=== PATIENT | female | born 1940 | race Caucasian/White ===

== ENCOUNTER 2017-09-25 19:52 | Emergency (ER) | payer OTHER ==
[2017-09-26] MEDS: morphine 4 MG/ML VIAL IV (08:46)
[2017-09-26] MEDS: PANTOPRAZOLE 40 MG INJ IV (08:46)
[2017-09-26] MEDS: ONDANSETRON 4 MG INJ IV (08:46)
[2017-09-26 08:57] LABS: ADD MAN DIFF? NO
[2017-09-26 09:11] LABS: WHITE BLOOD COUNT 7.9 10^3/ul (4.8-10.8)
[2017-09-26 09:11] LABS: BASOPHIL # 0.1 10^3/ul (0.0-0.1); BASOPHILS % 0.9 % (0.0-2.0); EOSINOPHILS # 0.1 10^3/ul (0.0-0.5); EOSINOPHILS % 0.6 % (0.0-7.0); HEMATOCRIT 35.9 % (37.0-47.0); HEMOGLOBIN 12.5 g/dl (12.0-16.0); LYMPHOCYTES # 2.3 10^3/ul (0.8-2.9); LYMPHOCYTES % 29.5 % (15.0-51.0); MEAN CORPUSCULAR HEMOGLOBIN 30.3 pg (29.0-33.0); MEAN CORPUSCULAR HGB CONC 34.8 g/dl (32.0-37.0); MEAN CORPUSCULAR VOLUME 86.9 fl (82.0-101.0); MEAN PLATELET VOLUME 9.7 fl (7.4-10.4); MONOCYTE # 0.5 10^3/ul (0.3-0.9); MONOCYTES % 6.7 % (0.0-11.0); NEUTROPHIL # 4.9 10^3/ul (1.6-7.5); NEUTROPHILS % 61.8 % (39.0-77.0); PLATELET COUNT 286 10^3/UL (140-415); RED BLOOD COUNT 4.13 10^6/ul (4.20-5.40); RED CELL DISTRIBUTION WIDTH 14.3 % (11.5-14.5)
[2017-09-26 09:26] LABS: ALANINE AMINOTRANSFERASE 39 IU/L (13-69); ALBUMIN 4.5 g/dl (3.3-4.9); ALBUMIN/GLOBULIN RATIO 1.09; ALKALINE PHOSPHATASE 88 IU/L (42-121); ANION GAP 16 (8-16); ASPARTATE AMINO TRANSFERASE 39 IU/L (15-46); BILIRUBIN,INDIRECT 0.4 mg/dl (0-1.1); BILIRUBIN,TOTAL 0.4 mg/dl (0.2-1.3); BLOOD UREA NITROGEN 12 mg/dl (7-20); CALCIUM 9.7 mg/dl (8.4-10.2); CARBON DIOXIDE 22 mmol/L (21-31); CHLORIDE 96 mmol/L (97-110); CREATININE 0.79 mg/dl (0.44-1.00); GLUCOSE 98 mg/dl (70-220); POTASSIUM 3.9 mmol/L (3.5-5.1); SODIUM 130 mmol/L (135-144); TOTAL PROTEIN 8.6 g/dl (6.1-8.1)
[2017-09-26 09:38] LABS: TROPONIN-I < 0.012 ng/ml (0.00-0.12)
[2017-09-26 09:40] LABS: INR 0.98; PROTIME 13.1 Sec (11.9-14.9)
[2017-09-26 09:41] LABS: PARTIAL THROMBOPLASTIN TIME 28.7 Sec (25.0-35.0)
[2017-09-26] MEDS ORDERED: HYDROmorphONE 1 MG/ML SYG (09:48)
[2017-09-26] MEDS: HYDROmorphONE 1 MG/ML SYG IV (09:50)
== END 2017-09-26 10:43 | disposition home or self-care (01) ==
LOC: E/R 19:52
DX: K62.5 Hemorrhage of anus and rectum (principal); I10 Essential (primary) hypertension
CPT/HCPCS: 36415; 74176; 80053; 84484; 85025; 85610; 85730; 86850; 86900; 86901; 93005; 96374; 96375; 99285-25

== ENCOUNTER 2018-01-06 17:48 | Inpatient (IN) | payer OTHER ==
[2018-01-06 18:45] LABS: ADD MAN DIFF? NO
[2018-01-06 18:47] LABS: BASOPHIL # 0.1 10^3/ul (0.0-0.1); BASOPHILS % 0.6 % (0.0-2.0); EOSINOPHILS # 0.1 10^3/ul (0.0-0.5); EOSINOPHILS % 1.7 % (0.0-7.0); HEMATOCRIT 34.1 % (37.0-47.0); HEMOGLOBIN 11.6 g/dl (12.0-16.0); LYMPHOCYTES # 3.1 10^3/ul (0.8-2.9); LYMPHOCYTES % 39.1 % (15.0-51.0); MEAN CORPUSCULAR HEMOGLOBIN 30.9 pg (29.0-33.0); MEAN CORPUSCULAR VOLUME 90.9 fl (82.0-101.0); MEAN PLATELET VOLUME 9.2 fl (7.4-10.4); MONOCYTE # 0.6 10^3/ul (0.3-0.9); MONOCYTES % 7.6 % (0.0-11.0); NEUTROPHILS % 50.7 % (39.0-77.0); PLATELET COUNT 224 10^3/UL (140-415); RED BLOOD COUNT 3.75 10^6/ul (4.20-5.40); RED CELL DISTRIBUTION WIDTH 13.8 % (11.5-14.5)
[2018-01-06 18:47] LABS: WHITE BLOOD COUNT 7.9 10^3/ul (4.8-10.8)
[2018-01-06] MEDS: ASPIRIN 81 MG TAB PO (18:50)
[2018-01-06] MEDS: LIDOCAINE/MYLANTA 40 ML BTL PO ×2 (18:50→23:59)
[2018-01-06 19:14] LABS: ANION GAP 13 (8-16); BLOOD UREA NITROGEN 14 mg/dl (7-20); CALCIUM 8.8 mg/dl (8.4-10.2); CARBON DIOXIDE 26 mmol/L (21-31); CHLORIDE 97 mmol/L (97-110); CREATININE 0.86 mg/dl (0.44-1.00); GLUCOSE 96 mg/dl (70-220); POTASSIUM 3.5 mmol/L (3.5-5.1); SODIUM 132 mmol/L (135-144)
[2018-01-06 19:26] LABS: TROPONIN-I < 0.012 ng/ml (0.00-0.12)
[2018-01-06] MEDS ORDERED: ACETAMINOPHEN 325 MG TAB PO (20:00)
[2018-01-06] MEDS ORDERED: ONDANSETRON 4 MG INJ IV (20:00)
[2018-01-06] MEDS: NITROGLYCERIN (SL) 0.4 MG TAB SL (22:58)
[2018-01-06] MEDS ORDERED: LIDOCAINE/MYLANTA 40 ML BTL PO (23:00)
[2018-01-07] MEDS ORDERED: ACETAMINOPHEN 325 MG TAB PO
[2018-01-07] MEDS ORDERED: NITROGLYCERIN (SL) 0.4 MG TAB SL
[2018-01-07] MEDS ORDERED: NACL 0.9% 3 ML SYG IV
[2018-01-07 00:14] LABS: TROPONIN-I 0.021 ng/ml (0.00-0.12)
[2018-01-07 00:37] LABS: CREATINE KINASE 56 IU/L (23-200)
[2018-01-07 00:50] LABS: CK INDEX 1.9; CK-MB 1.07 ng/ml (0.0-2.4); TROPONIN-I 0.019 ng/ml (0.00-0.12)
[2018-01-07] MEDS: SUCRALFATE 1 GM TAB PO ×4 (00:53→17:29)
[2018-01-07] MEDS: SOD CHLORIDE 0.9% 1,000 ML IV (00:54)
[2018-01-07] MEDS: PANTOPRAZOLE 40 MG INJ IV ×2 (00:54→06:18)
[2018-01-07] MEDS ORDERED: ZOLPIDEM 5 MG TAB PO (04:30)
[2018-01-07] MEDS ORDERED: LIDOCAINE/MYLANTA 40 ML BTL PO (04:30)
[2018-01-07] MEDS: LIDOCAINE/MYLANTA 40 ML BTL PO (06:18)
[2018-01-07 06:24] LABS: ADD MAN DIFF? NO
[2018-01-07 06:27] LABS: BASOPHIL # 0.1 10^3/ul (0.0-0.1); BASOPHILS % 0.8 % (0.0-2.0); EOSINOPHILS # 0.1 10^3/ul (0.0-0.5); EOSINOPHILS % 2.3 % (0.0-7.0); HEMATOCRIT 33.1 % (37.0-47.0); HEMOGLOBIN 11.4 g/dl (12.0-16.0); LYMPHOCYTES # 2.6 10^3/ul (0.8-2.9); MEAN CORPUSCULAR HEMOGLOBIN 31.3 pg (29.0-33.0); MEAN CORPUSCULAR HGB CONC 34.4 g/dl (32.0-37.0); MEAN CORPUSCULAR VOLUME 90.9 fl (82.0-101.0); MEAN PLATELET VOLUME 9.8 fl (7.4-10.4); MONOCYTE # 0.5 10^3/ul (0.3-0.9); MONOCYTES % 7.7 % (0.0-11.0); NEUTROPHIL # 2.9 10^3/ul (1.6-7.5); PLATELET COUNT 222 10^3/UL (140-415); RED BLOOD COUNT 3.64 10^6/ul (4.20-5.40); RED CELL DISTRIBUTION WIDTH 13.5 % (11.5-14.5)
[2018-01-07 06:27] LABS: WHITE BLOOD COUNT 6.2 10^3/ul (4.8-10.8)
[2018-01-07 06:50] LABS: ALANINE AMINOTRANSFERASE 37 IU/L (13-69); ALBUMIN 3.3 g/dl (3.3-4.9); ALKALINE PHOSPHATASE 58 IU/L (42-121); ANION GAP 16 (8-16); ASPARTATE AMINO TRANSFERASE 38 IU/L (15-46); BILIRUBIN,INDIRECT 0.5 mg/dl (0-1.1); BILIRUBIN,TOTAL 0.5 mg/dl (0.2-1.3); BLOOD UREA NITROGEN 11 mg/dl (7-20); CALCIUM 8.8 mg/dl (8.4-10.2); CARBON DIOXIDE 27 mmol/L (21-31); CHLORIDE 101 mmol/L (97-110); CHOL/HDL RATIO 4.1 RATIO; CHOLESTEROL 193 mg/dl (100-200); CREATININE 0.85 mg/dl (0.44-1.00); GLUCOSE 91 mg/dl (70-220); HDL CHOLESTEROL 47 mg/dl (33-92); LDL CHOLESTEROL,CALCULATED 123 mg/dl; MAGNESIUM 1.9 mg/dl (1.7-2.5); POTASSIUM 4.3 mmol/L (3.5-5.1); SODIUM 140 mmol/L (135-144); TOTAL PROTEIN 6.3 g/dl (6.1-8.1); TRIGLYCERIDES 116 mg/dl (0-149)
[2018-01-07 06:57] LABS: CREATINE KINASE 50 IU/L (23-200)
[2018-01-07 07:03] LABS: CK INDEX 1.6; CK-MB 0.81 ng/ml (0.0-2.4); TROPONIN-I 0.019 ng/ml (0.00-0.12)
[2018-01-07 07:06] LABS: HEMOGLOBIN A1C 5.7 % (0-5.9)
[2018-01-07] MEDS ORDERED: AL HYDROX/MG HYDROX/SIMETH 30 ML CUP PO (08:00)
[2018-01-07] MEDS: METOPROLOL 50 MG TAB PO ×2 (08:27→21:00)
[2018-01-07 10:42] LABS: T4 (THYROXINE) 9.9 ug/dl (5.5-11.0)
[2018-01-07 10:44] LABS: FREE T4 (FREE THYROXINE) 1.62 ng/dl (0.78-2.44)
[2018-01-07] MEDS: morphine 2 MG INJ IV ×3 (11:30→23:58)
[2018-01-07] MEDS: DOCUSATE SODIUM 100 MG CAP PO ×2 (12:43→21:51)
[2018-01-07] MEDS: BENAZEPRIL 40 MG TAB PO (12:43)
[2018-01-07 12:44] LABS: ADD MAN DIFF? NO
[2018-01-07 12:47] LABS: BASOPHILS % 0.6 % (0.0-2.0); EOSINOPHILS # 0.1 10^3/ul (0.0-0.5); EOSINOPHILS % 1.7 % (0.0-7.0); HEMATOCRIT 32.3 % (37.0-47.0); HEMOGLOBIN 11.1 g/dl (12.0-16.0); LYMPHOCYTES # 1.6 10^3/ul (0.8-2.9); LYMPHOCYTES % 29.5 % (15.0-51.0); MEAN CORPUSCULAR HEMOGLOBIN 31.2 pg (29.0-33.0); MEAN CORPUSCULAR HGB CONC 34.4 g/dl (32.0-37.0); MEAN CORPUSCULAR VOLUME 90.7 fl (82.0-101.0); MEAN PLATELET VOLUME 9.8 fl (7.4-10.4); MONOCYTE # 0.5 10^3/ul (0.3-0.9); MONOCYTES % 8.8 % (0.0-11.0); NEUTROPHIL # 3.2 10^3/ul (1.6-7.5); PLATELET COUNT 214 10^3/UL (140-415); RED BLOOD COUNT 3.56 10^6/ul (4.20-5.40); RED CELL DISTRIBUTION WIDTH 13.7 % (11.5-14.5)
[2018-01-07 12:47] LABS: WHITE BLOOD COUNT 5.4 10^3/ul (4.8-10.8)
[2018-01-07 13:02] LABS: RETICULOCYTE RBC 3.55
[2018-01-07 13:02] LABS: RETICULOCYTE COUNT # 0.052 X10^6 (0.020-0.110); RETICULOCYTE COUNT % 1.5 % (0.5-1.5)
[2018-01-07 13:07] LABS: IRON 76 ug/dl (35-150)
[2018-01-07 13:08] LABS: LACTATE DEHYDROGENASE 560 IU/L (313-618)
[2018-01-07 13:18] LABS: % IRON SATURATION 25 % SAT (22-52); TOTAL IRON BINDING CAPACITY 299 ug/dl (241-421)
[2018-01-07] MEDS: ONDANSETRON 4 MG INJ IV ×2 (17:29→21:55)
[2018-01-07] MEDS: PANTOPRAZOLE (EC) 40 MG TAB PO (17:29)
[2018-01-07 18:49] LABS: ADD MAN DIFF? NO
[2018-01-07 18:50] LABS: WHITE BLOOD COUNT 4.8 10^3/ul (4.8-10.8)
[2018-01-07 18:50] LABS: BASOPHILS % 0.4 % (0.0-2.0); EOSINOPHILS # 0.1 10^3/ul (0.0-0.5); EOSINOPHILS % 1.7 % (0.0-7.0); HEMATOCRIT 34.2 % (37.0-47.0); HEMOGLOBIN 11.4 g/dl (12.0-16.0); LYMPHOCYTES # 1.6 10^3/ul (0.8-2.9); LYMPHOCYTES % 33.1 % (15.0-51.0); MEAN CORPUSCULAR HEMOGLOBIN 30.5 pg (29.0-33.0); MEAN CORPUSCULAR HGB CONC 33.3 g/dl (32.0-37.0); MEAN CORPUSCULAR VOLUME 91.4 fl (82.0-101.0); MEAN PLATELET VOLUME 9.8 fl (7.4-10.4); MONOCYTE # 0.4 10^3/ul (0.3-0.9); MONOCYTES % 8.8 % (0.0-11.0); NEUTROPHIL # 2.7 10^3/ul (1.6-7.5); NEUTROPHILS % 55.6 % (39.0-77.0); PLATELET COUNT 220 10^3/UL (140-415); RED BLOOD COUNT 3.74 10^6/ul (4.20-5.40); RED CELL DISTRIBUTION WIDTH 13.6 % (11.5-14.5)
[2018-01-07] MEDS: ZOLPIDEM 5 MG TAB PO (21:50)
[2018-01-07] MEDS: ATORVASTATIN 40 MG TAB PO (21:51)
[2018-01-07 22:20] LABS: ADD UMIC NO; UR ASCORBIC ACID NEGATIVE (NEGATIVE); UR BILIRUBIN (Dip) NEGATIVE (NEGATIVE); UR BLOOD (Dip) NEGATIVE (NEGATIVE); UR CLARITY CLEAR (CLEAR); UR COLOR YELLOW (YELLOW); UR GLUCOSE (Dip) NEGATIVE (NEGATIVE); UR KETONES (Dip) NEGATIVE (NEGATIVE); UR LEUKOCYTE ESTERASE (Dip) NEGATIVE Leu/ul (NEGATIVE); UR NITRITE (Dip) NEGATIVE (NEGATIVE); UR SPECIFIC GRAVITY (Dip) 1.009 (1.003-1.030); UR TOTAL PROTEIN (Dip) NEGATIVE (NEGATIVE); UR UROBILINOGEN (Dip) NEGATIVE (NEGATIVE)
[2018-01-07 23:38] LABS: ADD MAN DIFF? NO
[2018-01-07 23:42] LABS: EOSINOPHILS # 0.1 10^3/ul (0.0-0.5); EOSINOPHILS % 2.2 % (0.0-7.0); HEMATOCRIT 32.3 % (37.0-47.0); HEMOGLOBIN 11.1 g/dl (12.0-16.0); LYMPHOCYTES # 1.1 10^3/ul (0.8-2.9); LYMPHOCYTES % 27.9 % (15.0-51.0); MEAN CORPUSCULAR HEMOGLOBIN 31.2 pg (29.0-33.0); MEAN CORPUSCULAR HGB CONC 34.4 g/dl (32.0-37.0); MEAN CORPUSCULAR VOLUME 90.7 fl (82.0-101.0); MONOCYTE # 0.4 10^3/ul (0.3-0.9); NEUTROPHIL # 2.4 10^3/ul (1.6-7.5); NEUTROPHILS % 59.7 % (39.0-77.0); PLATELET COUNT 218 10^3/UL (140-415); RED BLOOD COUNT 3.56 10^6/ul (4.20-5.40); RED CELL DISTRIBUTION WIDTH 13.7 % (11.5-14.5)
[2018-01-07 23:42] LABS: WHITE BLOOD COUNT 4.1 10^3/ul (4.8-10.8)
[2018-01-08] MEDS: morphine 2 MG INJ IV (04:56)
[2018-01-08] MEDS: PANTOPRAZOLE (EC) 40 MG TAB PO ×2 (05:00→19:00)
[2018-01-08] MEDS: SUCRALFATE 1 GM TAB PO ×5 (05:00→23:44)
[2018-01-08 06:21] LABS: ADD MAN DIFF? NO
[2018-01-08 06:38] LABS: WHITE BLOOD COUNT 4.5 10^3/ul (4.8-10.8)
[2018-01-08 06:38] LABS: BASOPHILS % 0.7 % (0.0-2.0); EOSINOPHILS # 0.1 10^3/ul (0.0-0.5); EOSINOPHILS % 2.4 % (0.0-7.0); HEMATOCRIT 32.8 % (37.0-47.0); HEMOGLOBIN 11.1 g/dl (12.0-16.0); LYMPHOCYTES # 1.7 10^3/ul (0.8-2.9); LYMPHOCYTES % 36.7 % (15.0-51.0); MEAN CORPUSCULAR HEMOGLOBIN 30.8 pg (29.0-33.0); MEAN CORPUSCULAR HGB CONC 33.8 g/dl (32.0-37.0); MEAN CORPUSCULAR VOLUME 91.1 fl (82.0-101.0); MEAN PLATELET VOLUME 10.2 fl (7.4-10.4); MONOCYTE # 0.3 10^3/ul (0.3-0.9); MONOCYTES % 7.6 % (0.0-11.0); NEUTROPHIL # 2.3 10^3/ul (1.6-7.5); NEUTROPHILS % 51.9 % (39.0-77.0); PLATELET COUNT 220 10^3/UL (140-415); RED CELL DISTRIBUTION WIDTH 13.7 % (11.5-14.5)
[2018-01-08 07:21] LABS: ANION GAP 11 (8-16); BLOOD UREA NITROGEN 9 mg/dl (7-20); CALCIUM 8.5 mg/dl (8.4-10.2); CARBON DIOXIDE 27 mmol/L (21-31); CHLORIDE 100 mmol/L (97-110); CREATININE 0.79 mg/dl (0.44-1.00); GLUCOSE 127 mg/dl (70-220); MAGNESIUM 1.9 mg/dl (1.7-2.5); PHOSPHORUS 2.5 mg/dl (2.5-4.9); POTASSIUM 3.8 mmol/L (3.5-5.1); SODIUM 134 mmol/L (135-144)
[2018-01-08] MEDS: METOPROLOL 50 MG TAB PO ×2 (09:00→21:06)
[2018-01-08] MEDS: DOCUSATE SODIUM 100 MG CAP PO ×3 (09:56→21:05)
[2018-01-08] MEDS: ASPIRIN (EC) 81 MG TAB PO (09:56)
[2018-01-08] MEDS: BENAZEPRIL 40 MG TAB PO (09:58)
[2018-01-08] MEDS: ONDANSETRON 4 MG INJ IV ×2 (10:10→19:07)
[2018-01-08] MEDS: POLYETHYLENE GLYCOL 17 GM PACKET PO (13:20)
[2018-01-08] MEDS: LACTULOSE 30ML CUP PO (13:21)
[2018-01-08] MEDS ORDERED: SENNA TAB PO (13:30)
[2018-01-08] MEDS ORDERED: LACTULOSE 30ML CUP PO (13:30)
[2018-01-08] MEDS: REGADENOSON 0.4 MG/5 ML SYG (16:24)
[2018-01-08] MEDS ORDERED: ZOLPIDEM 5 MG TAB PO (21:00)
[2018-01-08] MEDS: ATORVASTATIN 40 MG TAB PO (21:05)
[2018-01-08] MEDS: ZOLPIDEM 5 MG TAB PO (21:50)
[2018-01-09] MEDS: PANTOPRAZOLE (EC) 40 MG TAB PO (06:00)
[2018-01-09] MEDS: SUCRALFATE 1 GM TAB PO ×2 (06:00→12:00)
[2018-01-09] MEDS: POLYETHYLENE GLYCOL 17 GM PACKET PO ×2 (08:26→09:00)
[2018-01-09] MEDS: DOCUSATE SODIUM 100 MG CAP PO ×2 (08:26→13:00)
[2018-01-09] MEDS: ASPIRIN (EC) 81 MG TAB PO (08:47)
[2018-01-09] MEDS: BENAZEPRIL 40 MG TAB PO (08:47)
[2018-01-09] MEDS: METOPROLOL 50 MG TAB PO (08:47)
[2018-01-09] MEDS ORDERED: PROPOFOL 20 ML (12:46)
[2018-01-09 16:37] LABS: HAPTOGLOBIN 205 mg/dL (43-212)
== END 2018-01-09 17:35 | disposition home or self-care (01) | DRG 378 ==
LOC: E/R 17:48 → TEL 19:45 → MS1 01-08 20:15
PROC: 0DJ08ZZ Inspection of Upper Intestinal Tract, Via Natural or Artificial Opening Endoscopic (ICD-10-PCS; principal; 2018-01-09 11:40)
DX: K29.71 Gastritis, unspecified, with bleeding (principal); E87.1 Hypo-osmolality and hyponatremia; R07.9 Chest pain, unspecified; E11.9 Type 2 diabetes mellitus without complications; D64.9 Anemia, unspecified; I10 Essential (primary) hypertension; E03.9 Hypothyroidism, unspecified; E78.5 Hyperlipidemia, unspecified; R10.13 Epigastric pain; K21.9 Gastro-esophageal reflux disease without esophagitis; K59.00 Constipation, unspecified; R11.2 Nausea with vomiting, unspecified; Z79.4 Long term (current) use of insulin; Z90.49 Acquired absence of other specified parts of digestive tract; Z87.11 Personal history of peptic ulcer disease
CPT/HCPCS: 36415; 71045; 74176; 78452; 80048; 80053; 80061; 81003; 82550; 82553; 82962; 83010; 83036; 83540; 83615; 83735; 84100; 84436; 84439; 84443; 84484; 85025; 85045; 93005; 93017; 93306; 99285-25; G0378

== ENCOUNTER 2018-04-02 14:01 | Emergency (ER) | payer OTHER ==
[2018-04-02 14:34] LABS: ADD MAN DIFF? NO
[2018-04-02 14:36] LABS: WHITE BLOOD COUNT 8.1 10^3/ul (4.8-10.8)
[2018-04-02 14:36] LABS: BASOPHIL # 0.1 10^3/ul (0.0-0.1); BASOPHILS % 1.1 % (0.0-2.0); EOSINOPHILS # 0.1 10^3/ul (0.0-0.5); EOSINOPHILS % 1.4 % (0.0-7.0); HEMATOCRIT 33.5 % (37.0-47.0); HEMOGLOBIN 10.9 g/dl (12.0-16.0); LYMPHOCYTES # 2.4 10^3/ul (0.8-2.9); LYMPHOCYTES % 29.6 % (15.0-51.0); MEAN CORPUSCULAR HGB CONC 32.5 g/dl (32.0-37.0); MEAN CORPUSCULAR VOLUME 92.3 fl (82.0-101.0); MEAN PLATELET VOLUME 10.3 fl (7.4-10.4); MONOCYTE # 0.7 10^3/ul (0.3-0.9); MONOCYTES % 8.6 % (0.0-11.0); NEUTROPHIL # 4.8 10^3/ul (1.6-7.5); NEUTROPHILS % 59.1 % (39.0-77.0); PLATELET COUNT 290 10^3/UL (140-415); RED BLOOD COUNT 3.63 10^6/ul (4.20-5.40); RED CELL DISTRIBUTION WIDTH 13.3 % (11.5-14.5)
[2018-04-02 14:56] LABS: INR 1.02; PROTIME 13.5 Sec (11.9-14.9); PT RATIO 1.1
[2018-04-02 14:57] LABS: PARTIAL THROMBOPLASTIN TIME 27.8 Sec (25.0-35.0)
[2018-04-02 15:01] LABS: ALANINE AMINOTRANSFERASE 31 IU/L (13-69); ALBUMIN/GLOBULIN RATIO 1.17; ALKALINE PHOSPHATASE 64 IU/L (42-121); ANION GAP 15 (8-16); ASPARTATE AMINO TRANSFERASE 40 IU/L (15-46); BILIRUBIN,INDIRECT 0.4 mg/dl (0-1.1); BILIRUBIN,TOTAL 0.4 mg/dl (0.2-1.3); BLOOD UREA NITROGEN 19 mg/dl (7-20); CALCIUM 9.1 mg/dl (8.4-10.2); CARBON DIOXIDE 23 mmol/L (21-31); CHLORIDE 107 mmol/L (97-110); CREATININE 0.94 mg/dl (0.44-1.00); GLUCOSE 86 mg/dl (70-220); POTASSIUM 4.1 mmol/L (3.5-5.1); SODIUM 141 mmol/L (135-144); TOTAL PROTEIN 7.4 g/dl (6.1-8.1)
[2018-04-02 15:12] LABS: TROPONIN-I < 0.010 ng/ml (0.000-0.120)
[2018-04-02 15:26] LABS: URINE BLOOD (Dip) POC Trace-intact (NEGATIVE); URINE GLUCOSE (Dip) POC Negative (NEGATIVE); URINE KETONES (Dip) POC Negative (NEGATIVE); URINE LEUKOCYTE EST (Dip) POC Trace (NEGATIVE); URINE NITRITE (Dip) POC Negative (NEGATIVE); URINE TOTAL PROTEIN POC 1+ (NEGATIVE)
== END 2018-04-02 19:12 | disposition home or self-care (01) ==
LOC: E/R 14:01
DX: D64.9 Anemia, unspecified (principal); I10 Essential (primary) hypertension; E11.9 Type 2 diabetes mellitus without complications; Z79.82 Long term (current) use of aspirin
CPT/HCPCS: 36415; 70450; 80053; 81003; 84484; 85025; 85610; 85730; 93005; 99285-25